=== PATIENT | female | born 1980 | race Caucasian/White ===

== ENCOUNTER 2017-11-30 08:51 | Inpatient (IN) | payer OTHER ==
[2017-11-30] MEDS ORDERED: POLYCILLIN/NS 2 GM/100 ML 2 GM/100 ML BAG IV ONE (09:08)
[2017-11-30] MEDS ORDERED: XYLOCAINE 2% INFILTRATI ONE (09:08)
[2017-11-30] MEDS ORDERED: ZOFRAN IV PRN ×2 (09:08→10:44)
[2017-11-30] MEDS ORDERED: STADOL IV PRN (09:08)
[2017-11-30] MEDS ORDERED: ePHEDrine SULFATE IV PRN (09:08)
[2017-11-30] MEDS ORDERED: BRETHINE IVP PRN (09:08)
[2017-11-30] MEDS ORDERED: MINERAL OIL PO PRN (09:08)
[2017-11-30] MEDS ORDERED: BRETHINE SUB-Q PRN (09:08)
[2017-11-30] MEDS ORDERED: SUBLIMAZE IV PRN (09:08)
--- NOTE | 2017-11-30 09:14 | History and Physical Report ---
History of Present Illness Date of examination: 11/30/17 Chief complaint: Labor History of present illness: Pt is a 37yo HF EDC 11/16/17; EGA 42 0/7 weeks presents to L&D complaining of RUC's q 3-4 mins. She did not receive care with this . Past History Past Medical History: no pertinent history Past Surgical History: no surgical history Family/Genetic History: none Social history: no significant social history, - Obstetrical History Expected Date of Delivery: 11/16/17 Actual Gestation: 42 Week(s) 0 Day(s) : 5 Medications and Allergies Allergies Allergy/AdvReac Type Severity Reaction Status Date / Time No Known Allergies Allergy Verified 03/28/15 21:09 Home Medications Medication Instructions Recorded Confirmed Last Taken Type No Known Home Medications [No 03/28/15 04/23/15 Unknown History Reported Home Medications] Active Meds: Active Medications Butorphanol Tartrate (Stadol) 2 mg IV Q2H PRN PRN Reason: Pain , Severe (7-10) Ephedrine Sulfate (Ephedrine Sulfate) 10 mg IV Q2M PRN PRN Reason: Hypotension Fentanyl (Sublimaze) 100 mcg IV Q2H PRN PRN Reason: Labor Pain Ampicillin Sodium (Ampicillin/Ns 1 Gm/50 Ml) 1 gm in 50 mls @ 100 mls/hr IV Q4HR [facility]ARK; Protocol Ampicillin Sodium (Polycillin/Ns 2 Gm/100 Ml) 2 gm in 100 mls @ 100 mls/hr IV ONCE ONE; Protocol Stop: 11/30/17 10:07 Parenteral Electrolytes (Normosol-R Ph 7.4) 1,000 mls @ 125 mls/hr IV DIRECT [facility] Lidocaine (Xylocaine 2%) 20 ml INFILTRATI ONCE ONE Stop: 11/30/17 09:09 Mineral Oil (Mineral Oil) 30 ml PO QHS PRN PRN Reason: Constipation Review of Systems All systems: negative - Vital Signs Vital signs: Vital Signs Pulse BP 76 125/76 11/30/17 09:08 11/30/17 09:08 Temp Pulse Resp BP Pulse Ox 76 125/76 11/30/17 09:08 11/30/17 09:08 - Physical Exam Breasts: Positive: deferred Cardiovascular: Regular rate Lungs: Positive: Clear to auscultation Abdomen: Positive: normal appearance Genitourinary (Female): Positive: normal external genitalia Vagina: Positive: normal moisture Uterus: Positive: enlarged Extremities: Positive: normal - Obstetrical FHR: category 1 Uterine Contraction Monitor Mode: External Cervical Dilatation: 7 Cervical Effacement Percentage: 100 station: -2 Uterine Contraction Pattern: Regular Uterine Tone Measurement Phase: Contraction Uterine Contraction Intensity: Strong/Firm Results All other labs normal. Assessment and Plan - Patient Problems (1) 42 weeks gestation of Onset Date: 11/30/17 Current Visit: Yes Status: Acute Plan to address problem: A: IUP @ 42 0/7 weeks in l;abor No care P: Admit to L&D for expectant vaginal delivery Obtain labs IV Ampicillin (2) No care in current Onset Date: 11/30/17 Current Visit: No Status: Acute Qualifiers: Trimester: third trimester Qualified Code(s): O09.33 - Supervision of with insufficient care, third trimester
[2017-11-30 09:40] LABS: Hematocrit 31.4 % (30.3-42.9); Mean Corpuscular HGB Conc 32 % (30-34); Mean Corpuscular Volume 81 fl (79-97); Platelet Count 275 K/mm3 (140-440); Red Cell Distribution Width 17.2 % (13.2-15.2)
[2017-11-30 09:54] LABS: Mean Corpuscular Hemoglobin 26 pg (28-32)
[2017-11-30] MEDS ORDERED: PITOCin/NS 20 UNIT/1000ML DRIP 20 UNITS/1,000 ML BAG IV SCH ×2 (10:00→11:00)
[2017-11-30] MEDS ORDERED: NORMOSOL-R PH 7.4 1,000 ML IV SCH (10:00)
[2017-11-30] MEDS ORDERED: PITOCin/NS 30 UNIT/500ML 30 UNITS/500 ML BAG IV SCH (10:00)
--- NOTE | 2017-11-30 10:42 | Procedure Note ---
OB Delivery Note - Delivery Date of Delivery: 11/30/17 Surgeon: RAFAELA MENDES Estimated blood loss: 200cc - Vaginal Delivery presentation: vertex Delivery position: OA Intrapartum events: postterm- > or = 42 weeks, meconium, precipitous labor- <3hr , shoulder dystocia (resolved with McRobert's postioning and suprapubic pressure ) Delivery induction: none Delivery augmentation: rupture of membranes Delivery monitor: external FHT, external uterine Route of delivery: Delivery placenta: expressed Delivery cord: 3 umbilical vessels Episiotomy: none Delivery laceration: none Anesthesia: none Delivery comments: Infant delivered OA and after McRobert's positioning and suprapubic pressure, and handed to awaiting Ped/RT in attendance - A at 1 minute: 8 at 5 minutes: 8 Gender: Male (4543gms)
[2017-11-30] MEDS ORDERED: DULCOLAX PR PRN (10:44)
[2017-11-30] MEDS ORDERED: PHENERGAN PO PRN (10:44)
[2017-11-30] MEDS ORDERED: TYLENOL PO PRN (10:44)
[2017-11-30] MEDS ORDERED: MILK OF MAGNESIA PO PRN (10:44)
[2017-11-30] MEDS ORDERED: TUCKS PAD TP PRN (10:44)
[2017-11-30] MEDS ORDERED: BENADRYL PO PRN (10:44)
[2017-11-30] MEDS ORDERED: LANSINOH TP PRN (10:44)
[2017-11-30] MEDS ORDERED: PHENERGAN PR PRN (10:44)
[2017-11-30 10:53] LABS: Rubella IgG Antibody Immune (Immune)
[2017-11-30] MEDS ORDERED: SODIUM CHLORIDE FLUSH SYRINGE 10 ML IV NR (11:00)
[2017-11-30 11:19] LABS: Hepatitis C Virus Antibody Non-Reactive (NonReactive)
[2017-11-30] MEDS: MOTRIN PO SCH (13:07)
[2017-11-30] MEDS: NORCO 5/325 PO PRN (13:10)
[2017-11-30] MEDS ORDERED: AMPICILLIN/NS 1 GM/50 ML 1 GM/50 ML BAG IV SCH (13:10)
[2017-11-30] MEDS: METHERGINE PO SCH (13:14)
[2017-11-30 23:08] LABS: Hematocrit 30.4 % (30.3-42.9); Hemoglobin 9.7 gm/dl (10.1-14.3)
[2017-12-01] MEDS: MOTRIN PO SCH ×2 (01:30→18:30)
[2017-12-01] MEDS ORDERED: M-M-R II VACCINE SUB-Q ONE (06:00)
[2017-12-01] MEDS ORDERED: BOOSTRIX IM ONE (06:00)
[2017-12-01] MEDS: NORCO 5/325 PO PRN ×2 (06:48→18:30)
--- NOTE | 2017-12-01 08:20 | Progress Note ---
Assessment and Plan - Patient Problems (1) 42 weeks gestation of Onset Date: 11/30/17 Current Visit: Yes Status: Resolved (2) No care in current Onset Date: 11/30/17 Current Visit: No Status: Resolved Qualifiers: Trimester: third trimester Qualified Code(s): O09.33 - Supervision of with insufficient care, third trimester (3) (normal spontaneous vaginal delivery) Onset Date: 12/01/17 Current Visit: No Status: Resolved Plan to address problem: A: S/P - PPD #1 Doing well Asymptomatic anemia - stable P: May go home tomorrow Subjective - Subjective Date of service: 12/01/17 Principal diagnosis: s/p - PPD #1 Interval history: Pt is feeling well without complaints. Bleeding improved. Patient reports: appetite normal, voiding normally, pain well controlled, ambulating normally, no dizzy ambulation, no nauseated [place]: doing well, nursing well Objective - Vital Signs Latest vital signs: Vital Signs Temp Pulse Resp BP BP Pulse Ox 12/01/17 00:18 98.2 F 72 18 102/59 11/30/17 16:55 98.3 F 59 L 18 112/56 11/30/17 12:03 98.6 F 64 18 119/75 98 11/30/17 11:42 63 108/69 11/30/17 11:36 60 115/68 11/30/17 11:21 66 121/71 11/30/17 10:51 67 114/71 11/30/17 10:36 98 H 118/80 11/30/17 10:29 89 97 11/30/17 10:24 84 97 11/30/17 10:21 77 114/75 11/30/17 10:19 99 H 97 11/30/17 10:14 91 H 99 11/30/17 10:09 84 95 11/30/17 10:04 90 98 11/30/17 09:59 88 100 11/30/17 09:54 100 H 99 11/30/17 09:49 90 112/81 98 11/30/17 09:23 98.1 F 76 20 11/30/17 09:08 76 125/76 Intake and Output 11/30/17 12/01/17 12/01/17 22:59 06:59 14:59 Intake Total 600 240 Output Total 1200 Balance -600 240 Intake: Oral 360 Intake, Free Water 240 240 Output: Urine 1200 Void 1200 Other: Total, Intake Amount 360 Total, Output Amount 800 # Voids Void 3 - Exam Breasts: Present: deferred Cardiovascular: Present: Regular rate Lungs: Present: Clear to auscultation Abdomen: Present: normal appearance Uterus: Present: normal, firm, fundal height below umbilicus Extremities: Present: normal - Labs Labs: Abnormal lab results 11/30/17 11/30/17 Range/Units 09:22 22:46 Hgb 10.0 L 9.7 L (10.1-14.3) gm/dl MCH 26 L (28-32) pg RDW 17.2 H (13.2-15.2) % Laboratory Tests 11/30/17 11/30/17 11/30/17 09:22 09:22 09:22 WBC 8.8 RBC 3.90 Hgb 10.0 L Hct 31.4 MCV 81 MCH 26 L MCHC 32 RDW 17.2 H Plt Count 275 RPR Nonreactive Hep Bs Antigen Hepatitis C Antibody HIV 1&2 Antibody Rapid HIV P24 Antigen Rubella IgG Antibody Blood Type A POSITIVE Antibody Screen Negative 11/30/17 11/30/17 11/30/17 09:22 09:22 09:22 WBC RBC Hgb Hct MCV MCH MCHC RDW Plt Count RPR Hep Bs Antigen Non-reactive Hepatitis C Antibody Non-reactive HIV 1&2 Antibody Rapid Non react HIV P24 Antigen Non react Rubella IgG Antibody Immune Blood Type Antibody Screen 11/30/17 22:46 WBC RBC Hgb 9.7 L Hct 30.4 MCV MCH MCHC RDW Plt Count RPR Hep Bs Antigen Hepatitis C Antibody HIV 1&2 Antibody Rapid HIV P24 Antigen Rubella IgG Antibody Blood Type Antibody Screen
--- NOTE | 2017-12-01 08:56 | Discharge Summary ---
Providers - Providers Date of Admission: 11/30/17 09:34 Date of discharge: 12/02/17 Attending physician: RAFAELA MENDES Primary care physician: RAFAELA MENDES Hospitalization Reason for admission: active labor, IUP at term, other (No care) Delivery: Episiotomy: none Laceration: none Other procedures: none complications: none Discharge diagnosis: IUP at term delivered baby: male Hospital course: Unremarkable. Condition at discharge: Good Disposition: DC-01 TO HOME OR SELFCARE - Discharge Diagnoses (1) 42 weeks gestation of Status: Resolved (2) No care in current Status: Resolved Qualifiers: Trimester: third trimester Qualified Code(s): O09.33 - Supervision of with insufficient care, third trimester (3) (normal spontaneous vaginal delivery) Status: Resolved Plan - Discharge Medications Prescriptions: Ferrous Sulfate [Feosol 325 MG tab] 325 mg PO BID #60 tablet Ibuprofen [Motrin 600 MG tab] 600 mg PO Q6H #30 tablet Vit-Fe Fumar-FA [ Vitamin] 1 each PO QDAY #30 tablet - Provider Discharge Summary Activity: routine, no sex for 6 weeks, no heavy lifting 4 weeks, no strenuous exercise Diet: routine Instructions: routine Additional instructions: [] Smoking cessation referral if applicable(refer to patient education folder for contact #) [] Refer to [facility] Booklet Call your doctor immediately for: * Fever > 100.5 * Heavy vaginal bleeding ( >1 pad per hour) * Severe persistent headache * Shortness of breath * Reddened, hot, painful area to leg or breast * Drainage or odor from incision. * Keep incision clean and dry at all times and follow doctor's instructions regarding bathing/showering - Follow up plan Follow up: RAFAELA MENDES MD [Primary Care Provider] - 6 Weeks
[2017-12-01 09:17] LABS: Amphetamine Screen,Urine PRESUMPTIVE NEGATIVE; Benzodiazepines Screen,Urine PRESUMPTIVE NEGATIVE; Cannabinoid Screen,Urine PRESUMPTIVE NEGATIVE; Cocaine Screen,Urine PRESUMPTIVE NEGATIVE; Methadone Screen,Urine PRESUMPTIVE NEGATIVE; Opiate Screen,Urine PRESUMPTIVE NEGATIVE
[2017-12-01 09:30] LABS: Bacteria,Urine 1+ /HPF (Negative); Bilirubin,Urine NEG (Negative); Blood,Urine LG (Negative); Color,Urine Yellow (Yellow); Mucus,Urine FEW /HPF; Urobilinogen,Urine < 2.0 mg/dL (<2.0)
[2017-12-01 09:31] LABS: RBC,Urine > 182.0 /HPF (0.0-6.0)
[2017-12-01] MEDS ORDERED: PRENATAL VITAMIN PO SCH (10:00)
[2017-12-01] MEDS ORDERED: Fluarix Quad 2017-2018(36 MOS+ IM ONE (12:00)
[2017-12-01] MEDS: COLACE PO SCH ×2 (16:24→21:51)
[2017-12-01] MEDS: FEOSOL PO SCH ×2 (16:24→21:51)
[2017-12-01] MEDS: METHERGINE PO SCH (16:26)
[2017-12-02] MEDS: MOTRIN PO SCH ×2 (00:57→05:31)
[2017-12-02] MEDS: METHERGINE PO SCH (00:57)
[2017-12-02 10:03] VITALS: BP 109/69
== END 2017-12-02 11:36 | disposition home or self-care (01) | DRG 775 ==
LOC: TRG 08:51 → LD 09:34 → OB 12:21
PROVIDERS: ADMIT Obstetrics & Gynecology; ATTEND Obstetrics & Gynecology
PROC: 10E0XZZ Delivery of Products of Conception, External Approach (ICD-10-PCS; principal; 2017-11-30)
DX: O48.0 Post-term pregnancy (principal); O77.0 Labor and delivery complicated by meconium in amniotic fluid; O62.3 Precipitate labor; O66.0 Obstructed labor due to shoulder dystocia; O90.81 Anemia of the puerperium; D64.9 Anemia, unspecified; Z3A.42 42 weeks gestation of pregnancy; Z37.0 Single live birth
CPT/HCPCS: 36415; 80307; 81001; 85014; 85018; 85027; 86592; 86706; 86762; 86803; 86850; 86900; 86901; 87806; 88307; 90686; J2590